=== PATIENT | male | born 1945 | race Caucasian/White ===

== ENCOUNTER 2018-07-03 23:37 | Emergency (ER) | payer MEDICARE, BC ==
[2018-07-03 23:49] VITALS: BP 144/76
--- NOTE | 2018-07-03 23:51 | EDM.PDOC ---
ED HPI GENERAL MEDICAL PROBLEM - General Chief Complaint: Neuro Symptoms/Deficits Stated Complaint: LOSING VISION IN RIGHT EYE,STOKE? 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 saw PMD had CAT-negative. denies SPEAR. take asa x2 daily. has appt next week for carotid duplex and echo Headache Pain Score (Numeric/FACES): 5 - Related Data Allergies Allergy/AdvReac Type Severity Reaction Status Date / Time No Known Allergies Allergy Verified 07/03/18 23:54 Home Meds: Home Meds Calcium Carbonate/Vitamin D3 [Calcium 600 + Vit D Tablet] 1 each PO DAILY [History] Timolol Maleate [Timoptic 0.5% Ophth Soln] 1 drop EYERT BID 03/03/15 [History] Ascorbate Calcium/Bioflavonoid [Katie-C 500 MG] 1 tab PO DAILY 10/13/17 [History ] Aspirin [Halfprin] 325 mg PO DAILY 10/13/17 [History] Cider Vinegar [Apple Cider Vinegar] 30 ml PO DAILY 10/13/17 [History] Past Medical History HEENT History: Reports: Allergic Rhinitis, Glaucoma Cardiovascular History: Reports: High Cholesterol Respiratory History: Reports: None Gastrointestinal History: Reports: Hemorrhoids Genitourinary History: Reports: None Musculoskeletal History: Reports: Arthritis, Fracture Other Musculoskeletal History: S/P FRACTURE OF RIGHT HAND Neurological History: Reports: Head Trauma Psychiatric History: Reports: None Endocrine/Metabolic History: Reports: Obesity/BMI 30+ Hematologic History: Reports: None Immunologic History: Reports: None Oncologic (Cancer) History: Reports: None Dermatologic History: Reports: Eczema - Infectious Disease History Infectious Disease History: Reports: Measles - Past Surgical History Head Surgeries/Procedures: Reports: None HEENT Surgical History: Reports: Naso-Sinus Surgery, Tonsillectomy, Other (See Below) Other HEENT Surgeries/Procedures: septoplasty Cardiovascular Surgical History: Reports: None GI Surgical History: Reports: Colonoscopy, Hernia, Inguinal Other Male Surgeries/Procedures: S/P EXCISION OF PILONIDAL RECTAL CYST Musculoskeletal Surgical History: Reports: Arthroscopic Knee, Hip Replacement, Knee Replacement, Other (See Below) Other Musculoskeletal Surgeries/Procedures:: right wrist Social & Family History - Family History Family Medical History: Noncontributory GI: Reports: GERD Oncologic: Reports: Colon - Caffeine Use Caffeine Use: Reports: Coffee Other Caffeine Use: 24 oz daily ED ROS GENERAL - Review of Systems Review Of Systems: ROS reveals no pertinent complaints other than HPI. ED EXAM, NEURO - Physical Exam Exam: See Below Exam Limited By: No Limitations General Appearance: Alert, WD/WN, Anxious, Mild Distress Eye Exam: Bilateral Eye: PERRL (pupils ER @ 4mm) Ears: Hearing Grossly Normal Throat/Mouth: Normal Voice, No Airway Compromise Head Exam: Atraumatic Neck: Non-Tender, Full Range of Motion Respiratory/Chest: No Respiratory Distress Cardiovascular: Regular Rate, Rhythm GI/Abdominal: Soft, Non-Tender Neurological: Alert, Normal Mood/Affect, Normal Gait, No Motor/Sensory Deficits , Oriented x 3 Psychiatric: Flat Affect Skin Exam: Warm, Dry, Normal Color Course - Vital Signs Last Recorded V/S: Last Vital Signs Temp 36.2 C 07/03/18 23:42 Pulse 81 07/03/18 23:42 Resp 18 07/03/18 23:42 BP 144/76 H 07/03/18 23:42 Pulse Ox 100 07/03/18 23:42 - Orders/Labs/Meds Orders: Active Orders 24 hr Category Date Time Status EKG 12 Lead [EKG Documentation Completion] [RC] ROUTINE Care 07/03/18 23:39 Active Labs: Laboratory Tests 07/03/18 07/03/18 07/03/18 Range/Units 23:45 23:45 23:45 WBC 7.4 (5.0-10.0) 10^3/uL RBC 4.49 L (4.6-6.2) 10^6/uL Hgb 14.3 (14.0-18.0) g/dL Hct 43.0 (40.0-54.0) % MCV 95.8 (80-100) fL MCH 31.8 (27.0-34.0) pg MCHC 33.3 (33.0-35.0) g/dL Plt Count 214 (150-450) 10^3/uL Neut % (Auto) 68.0 (42.2-75.2) % Lymph % (Auto) 17.7 L (20.5-50.1) % [place] % (Auto) 7.8 (2-8) % Eos % (Auto) 6.2 H (1.0-3.0) % Baso % (Auto) 0.3 (0.0-1.0) % PT 9.4 (9.0-12.0) SEC INR 0.9 (0.9-1.2) APTT 27.6 (22.0-34.0) SEC Sodium 136 (135-145) mmol/L Potassium 4.0 (3.6-5.0) mmol/L Chloride 100 L (101-111) mmol/L Carbon Dioxide 25.0 (21.0-31.0) mmol/L Anion Gap 15.0 BUN 19 H (7-18) mg/dL Creatinine 0.8 (0.6-1.3) mg/dL Est Cr Clr Drug Dosing 75.89 mL/min Estimated GFR (MDRD) > 60 BUN/Creatinine Ratio 23.75 Glucose 107 H (74-105) mg/dL Calcium 9.0 (8.4-10.2) mg/dl Total Bilirubin 1.1 H (0.2-1.0) mg/dL AST 25 (10-42) IU/L ALT 31 (10-60) IU/L Alkaline Phosphatase 81 (42-121) IU/L C-Reactive Protein (0.0-1.3) mg/dL Total Protein 6.8 (6.7-8.2) g/dl Albumin 4.1 (3.2-5.5) g/dl Globulin 2.7 Albumin/Globulin Ratio 1.52 07/03/18 Range/Units 23:45 WBC (5.0-10.0) 10^3/uL RBC (4.6-6.2) 10^6/uL Hgb (14.0-18.0) g/dL Hct (40.0-54.0) % MCV (80-100) fL MCH (27.0-34.0) pg MCHC (33.0-35.0) g/dL Plt Count (150-450) 10^3/uL Neut % (Auto) (42.2-75.2) % Lymph % (Auto) (20.5-50.1) % [place] % (Auto) (2-8) % Eos % (Auto) (1.0-3.0) % Baso % (Auto) (0.0-1.0) % PT (9.0-12.0) SEC INR (0.9-1.2) APTT (22.0-34.0) SEC Sodium (135-145) mmol/L Potassium (3.6-5.0) mmol/L Chloride (101-111) mmol/L Carbon Dioxide (21.0-31.0) mmol/L Anion Gap BUN (7-18) mg/dL Creatinine (0.6-1.3) mg/dL Est Cr Clr Drug Dosing mL/min Estimated GFR (MDRD) BUN/Creatinine Ratio Glucose (74-105) mg/dL Calcium (8.4-10.2) mg/dl Total Bilirubin (0.2-1.0) mg/dL AST (10-42) IU/L ALT (10-60) IU/L Alkaline Phosphatase (42-121) IU/L C-Reactive Protein 1.4 H (0.0-1.3) mg/dL Total Protein (6.7-8.2) g/dl Albumin (3.2-5.5) g/dl Globulin Albumin/Globulin Ratio - Re-Assessments/Exams Free Text/Narrative Re-Assessment/Exam: 07/04/18 01:[address] Aramis Perez @ who rec' what the pt has already been scheduled to do. pt concurred but was curious if there was more to do. Departure - Departure Time of Disposition: 01:16 Disposition: Home, Self-Care 01 Condition: Fair Clinical Impression: Amaurosis fugax of right eye - Discharge Information Forms: ED Department Discharge Additional Instructions: 1) follow up with appointments made by Dr Seo 2) call Dr Self Tapper Shank at [place] Friday for appointment [phone] 3) recheck as there is any change or concern - My Orders Last 24 Hours: My Active Orders 07/03/18 23:39 EKG 12 Lead [EKG Documentation Completion] [RC] ROUTINE - Assessment/Plan Last 24 Hours: My Active Orders 07/03/18 23:39 EKG 12 Lead [EKG Documentation Completion] [RC] ROUTINE
[2018-07-04 00:12] LABS: CHLORIDE,CL 100 mmol/L (101-111); SODIUM,NA 136 mmol/L (135-145)
== END 2018-07-04 01:23 | disposition home or self-care (01) ==
LOC: DL.ED 23:37
DX: G45.3 Amaurosis fugax (principal); E78.00 Pure hypercholesterolemia, unspecified; Z79.899 Other long term (current) drug therapy; Z79.82 Long term (current) use of aspirin
CPT/HCPCS: 36415; 80053; 85025; 85610; 85730; 86140; 93005; 99284-25

== ENCOUNTER → 2018-07-06 | Outpatient (CLI) | payer MEDICARE, BC | LOC: DL.US 12:50 | PROVIDERS: ATTEND Internal Medicine Gastroenterology | DX: I25.10 Atherosclerotic heart disease of native coronary artery without angina pectoris (principal) | CPT/HCPCS: 93306 ==

== ENCOUNTER 2022-06-12 11:31 | Emergency (ER) | payer OTHER, MEDICARE ==
[2022-06-12 11:44] VITALS: BP 162/90; PULSE 97
[2022-06-12] MEDS ORDERED: Sodium Chloride 0.9% 10 ML Syringe FLUSH PRN (11:53)
[2022-06-12 12:41] LABS: ANION GAP 8.9 mEq/L (7-13)
[2022-06-12] MEDS: Iopamidol 612 MG/ML 100 ML Bottle IVPUSH ONE (13:17)
== END 2022-06-12 14:01 | disposition home or self-care (01) ==
LOC: DL.ED 11:31
DX: L03.116 Cellulitis of left lower limb (principal); M19.90 Unspecified osteoarthritis, unspecified site; E66.9 Obesity, unspecified; Z68.32 Body mass index [BMI] 32.0-32.9, adult; Z87.891 Personal history of nicotine dependence; Z79.82 Long term (current) use of aspirin; Z79.899 Other long term (current) drug therapy
CPT/HCPCS: 36415; 73701-LT; 80053; 83605; 85025; 85379; 86140; 87040; 99284; Q9967